=== PATIENT | female | born 1955 | race Caucasian/White ===

== ENCOUNTER 2018-06-07 10:28 | Outpatient (CLI) | payer MEDICARE | END 2018-06-07 10:29 | disposition home or self-care (01) | LOC: BICULT 10:28 | PROVIDERS: ATTEND Internal Medicine Gastroenterology | DX: K74.60 Unspecified cirrhosis of liver (principal); R16.0 Hepatomegaly, not elsewhere classified | CPT/HCPCS: 76705 ==

== ENCOUNTER 2019-02-14 10:41 | Outpatient (CLI) | payer MEDICARE ==
--- NOTE | 2019-02-14 12:01 | ULT ---
HEPATIC ULTRASOUND WITH DOPPLER: HISTORY: Hepatitis. COMPARISON: 06/07/2018 FINDINGS: The liver is echogenic and measures 20 cm in length. No focal mass or intrahepatic ductal dilatation is seen. The spleen measures 12.7 cm in length. The patient is post cholecystectomy. The pancreas is obscure d by overlying bowel gas. The common duct measures 6 mm in diameter. No free fluid is seen. There is normal flow and spectral waveforms in the hepatic, portal, and splenic vasculature. The exam is somewhat limited due to body habitus. IMPRESSION: 1. Increased echogenicity of the liver, consistent with hepatocellular disease. No evidence of hepa tic mass. 2. Status post cholecystectomy without high-grade biliary obstruction. POS: TPC
== END 2019-02-14 10:42 | disposition home or self-care (01) ==
LOC: BICULT 10:41
PROVIDERS: ATTEND Internal Medicine Gastroenterology
DX: D13.2 Benign neoplasm of duodenum (principal); K74.60 Unspecified cirrhosis of liver; K76.0 Fatty (change of) liver, not elsewhere classified; R93.2 Abnormal findings on diagnostic imaging of liver and biliary tract; Z86.010 Personal history of colon polyps; Z91.89 Other specified personal risk factors, not elsewhere classified; Z90.49 Acquired absence of other specified parts of digestive tract
CPT/HCPCS: 76705

== ENCOUNTER 2019-02-23 08:19 | Day surgery (SDC) | payer MEDICARE ==
[2019-02-22 13:20] VITALS: BMI 49.9
--- NOTE | 2019-02-23 12:58 | OP ---
DATE OF PROCEDURE: 02/23/2019 PROCEDURES PERFORMED: Esophagogastroduodenoscopy with biopsy and colonoscopy with polypectomy. PREPROCEDURE DIAGNOSES: 1. Cirrhosis from [place]. 2. History of duodenal mass resected in distant past and then ablated endoscopically by Dr. Chip Haynes in [place] in distant past. No recent followup. 3. Prior history of colon polyps. 4. Large abdominal hernias. 5. Morbid obesity. ANESTHESIA: TIVA. POSTPROCEDURE DIAGNOSES: 1. Atypical appearance of duodenoduodenal anastomosis just outside of the bulb. Visualization very difficult secondary to body habitus, persistent coughing, retching, and difficulty with airway management per Anesthesia. Multiple biopsies were taken from the anastomosis. 2. Otherwise normal esophagogastroduodenoscopy. 3. Colonoscopy notable for 4 polyps from 2 to 5 mm in size in the transverse colon and ascending colon, removed by snare polypectomy. Sigmoid colon was notable for 2 polyps, one 5 mm and one 10 mm, both removed by snare polypectomy. Both had postpolypectomy bleeding and were treated with hemoclips, 3 were used. 4. Rectal polyp, frondlike, removed by snare polypectomy. 5. Postoperative changes in the stomach, that is previous gastric band without complications seen. COMPLICATIONS: None. Airway was managed definitely by Anesthesia. For details, see their records. There were no desaturations. The procedure was very difficult secondary to the patient's body habitus. RECOMMENDATIONS: 1. Await pathology. Repeat colonoscopy in 3 years. 2. Follow up in the office in 2 weeks. DESCRIPTION OF PROCEDURE: The patient was informed of the risks, benefits, and possible complications of endoscopy including perforation, reaction to medication, and aspiration, informed consent was obtained. The patient was brought to the endoscopy suite, where she was sedated in gradual fashion. Once she was comfortable, a bite block was placed inside the orifice. The endoscope was advanced through the esophagus, stomach, and the second and third portion of the duodenum. The esophagus was normal. The stomach was normal in forward and retroflexed views. The duodenal bulb was normal. However, just outside of the duodenal bulb, there was an end-to-side anastomosis for the duodenum. Distal of this, the duodenum appeared normal. Proximal to it, end anastomosis itself appeared somewhat atypical, but the area was very difficult to visualize and keep clear. There was bile reflux and the patient had continuous retching and coughing throughout the procedure. We biopsied this area vigorously as there was a history of polypoid tissue in the area that had to be ablated previously. There was no hard or firm tissue to indicate malignancy. There were some erosions. The stomach retroflexed views were normal except for evidence of previous bariatric surgery probably a band. The band was not seen and there was no evidence of obstruction. The patient was turned to the room after the EGD and a rectal examination was performed. The endoscope was advanced to the anal canal through the colon to the cecum, which was identified by ileocecal valve and appendiceal orifice. The exam was very difficult as she had a large abdominal wall hernia with colon above that hernia and we had to maneuver in and out of the hernia sac with manual pressure. Once we were able to reach the cecum, the prep was pretty good. We irrigated with about 200 mL of sterile water. We slowly came back and removed 8 polyp as noted above. From the transverse and ascending colon between 3 and 5 mm in size with hot snare polypectomy with good hemostasis. Other 2 in the sigmoid, 1 about 4 mm and 1 about 10 mm in size, these were removed by hot snare polypectomy and both had bleeding, which had to be controlled with hemoclip placement. There was 1 rectal polyp that was frondlike and may represent condyloma, although it did not appear hard or firm, removed by snare polypectomy. Retroflexed view showed internal hemorrhoids. The scope was removed. The patient tolerated the procedure well. There were no complications. Job ID: [id number]
[2019-02-23] MEDS ORDERED: PROPOFOL 200 MG/20 ML VIAL ONE (15:24)
== END 2019-02-23 12:40 | disposition home or self-care (01) ==
LOC: SDC 08:19
PROVIDERS: ATTEND Internal Medicine Gastroenterology
PROC: 0DB98ZX Excision of Duodenum, Via Natural or Artificial Opening Endoscopic, Diagnostic (ICD-10-PCS; principal; 2019-02-23)
PROC: 0DBK8ZX Excision of Ascending Colon, Via Natural or Artificial Opening Endoscopic, Diagnostic (ICD-10-PCS; 2019-02-23)
PROC: 0DBL8ZX Excision of Transverse Colon, Via Natural or Artificial Opening Endoscopic, Diagnostic (ICD-10-PCS; 2019-02-23)
PROC: 0DBN8ZX Excision of Sigmoid Colon, Via Natural or Artificial Opening Endoscopic, Diagnostic (ICD-10-PCS; 2019-02-23)
PROC: 0DBP8ZX Excision of Rectum, Via Natural or Artificial Opening Endoscopic, Diagnostic (ICD-10-PCS; 2019-02-23)
DX: Z12.11 Encounter for screening for malignant neoplasm of colon (principal); D12.2 Benign neoplasm of ascending colon; D12.3 Benign neoplasm of transverse colon; D12.5 Benign neoplasm of sigmoid colon; D12.8 Benign neoplasm of rectum; K64.8 Other hemorrhoids; K43.9 Ventral hernia without obstruction or gangrene; D13.2 Benign neoplasm of duodenum; K75.81 Nonalcoholic steatohepatitis (NASH); K74.60 Unspecified cirrhosis of liver; E11.9 Type 2 diabetes mellitus without complications; K21.9 Gastro-esophageal reflux disease without esophagitis; F41.9 Anxiety disorder, unspecified; J45.909 Unspecified asthma, uncomplicated; F32.9 Major depressive disorder, single episode, unspecified; G47.30 Sleep apnea, unspecified; E07.9 Disorder of thyroid, unspecified; E66.01 Morbid (severe) obesity due to excess calories; Z68.42 Body mass index [BMI] 45.0-49.9, adult; Z86.010 Personal history of colon polyps; Z79.4 Long term (current) use of insulin; Z79.899 Other long term (current) drug therapy; Z98.890 Other specified postprocedural states; Z91.14 Patient's other noncompliance with medication regimen; Z91.11 Patient's noncompliance with dietary regimen
CPT/HCPCS: 36416; 88305; J2704